=== PATIENT | male | born 1970 | race Caucasian/White ===

== ENCOUNTER 2022-12-09 06:33 | Day surgery (SDC) | payer BC ==
[~2022-12-09 06:33] MED LIST: Lactated Ringers 1,000 ML IV SCH
[2022-12-09] MEDS ORDERED: Propofol 200 MG/20 ML SDV ONE (07:28)
[2022-12-09] MEDS ORDERED: Lactated Ringers 1,000 ML IV SCH (08:30)
== END 2022-12-09 09:00 | disposition home or self-care (01) ==
LOC: MW.SDS 06:33
PROVIDERS: ATTEND Surgery
DX: Z12.11 Encounter for screening for malignant neoplasm of colon (principal); D12.8 Benign neoplasm of rectum; E11.9 Type 2 diabetes mellitus without complications; M10.9 Gout, unspecified; E78.00 Pure hypercholesterolemia, unspecified; Z88.8 Allergy status to other drugs, medicaments and biological substances; Z79.899 Other long term (current) drug therapy; Z98.890 Other specified postprocedural states
CPT/HCPCS: 45380; J2704; J7120